=== PATIENT | female | born 1960 | race Caucasian/White ===

== ENCOUNTER 2019-03-05 15:27 | Inpatient (IN) | payer BC, OTHER ==
[~2019-03-05] VITALS: Ht 162.6 cm; Wt 82.9 kg
[2019-03-05] VITALS (8 sets, daily range): BP systolic 93–193; BP diastolic 48–550
--- NOTE | ~2019-03-05 | EMS ---
[address] [address] EMS Patient Care Report Name: TWILA GOODSON Room #: REG ALFREDO Espinoza#: [id number] Admission: 03/05/19 Attend Phys: Discharge: Date of : 60 Report #: [id number] THIS REPORT FOR: //name// Report Transmitted: 03/05/2019 15:42 EMS Care Summary [place], [place]/[facility] Incident [id number] @ 03/05/2019 14:57 Incident Location [address] [place] [address] Patient TWILA GOODSON Female, 58 Years 1960 Patient Address [address] [place] [address] Patient History None Reported, Patient Allergies No known allergies, Patient Medications Paula Foster, Chief Complaint Right arm/SHoulder pain Disposition Transported Lights/Noonan Dispatch Reason Chest Pain (Non-Traumatic) Transported To [facility] Narrative Arrived on scene for a 58 y/o female that is sitting on the toilet. Pt finished the restroom and walked herself to the couch in the front room. Pt said that she was napping and woke up with right arm pain. Pt said that she tried to take some ibuprofen with no relief. Pt said that the neighbor had a [address] [address] EMS Patient Care Report Name: TWILA GOODSON Room #: [facility]#: [id number] Admission: 03/05/19 Attend Phys: Discharge: Date of : 60 Report #: [id number] nitro and a baby aspirin and about 5 minutes after taking it, she vomited it up. Pt said that the pain is moving to her chest pain. See Pt Assessment STEMI See Flow Chart. Moved Pt from couch to cot. Transported emergent to closest STEMI Center. Activated Code STEMI. Moved Pt from cot to bed via cot sheet. Transferred care to receiving facility. Initial Vitals @15:18P: 73,CO: 4,SpO2: 92, @15:04P: 68,CO: 4,SpO2: 96,MD Suspected: true @15:02P: 70,R: 20,BP: 203/74,Pain: 4/10,GCS: 15,CO: 4,SpO2: 96,Revised Trauma: 12,MD Suspected: true Assessments @15:01MENTAL:Person Oriented,Time Oriented,Place Oriented,Event Oriented,SKIN:Cold,Diaphoresis,HEENT:Head/Face: No Abnormalities,Eyes: No Abnormalities,Neck/Airway: No Abnormalities,LUNG SOUNDS:General: No Abnormalities,Left Upper: No Abnormalities,Right Upper: No Abnormalities,Left Lower: No Abnormalities,Right Lower: No Abnormalities,ABDOMEN:General: No Abnormalities,Left Upper: No Abnormalities,Right Upper: No Abnormalities,Left Lower: No Abnormalities,Right Lower: No Abnormalities,PELVIS//GI:No Abnormalities,EXTREMITIES:Left Arm: Other,Right Arm: No Abnormalities,Left Leg: No Abnormalities,Right Leg: No Abnormalities,PULSE:Radial: 3+ Bounding,NEURO:No Abnormalities, Impression ST elevation myocardial infarction (STEMI) Procedures @15:01ALS AssessmentResponse: UnchangedSucceeded@15:10Saline Lock 5cc (18 ga) Site: Antecubital-LeftResponse: UnchangedSucceeded@15:043-Lead ECGResponse: Unchanged@15:12Aspirin - 324 Milligrams (mg) - OralResponse: Unchanged@15:20STEMI AlertResponse: Unchanged@15:0412-Lead ECGResponse: Unchanged Timeline 14:55,Call Received 14:55,Dispatch Notified 14:57,Dispatched 14:57,En Route 14:59,On Scene 15:01,At Patient [facility] [address] [place] [address] EMS Patient Care Report Name: TWILA GOODSON Lucien Room #: REG Alexis#: [id number] Admission: 03/05/19 Attend Phys: Discharge: Date of : 60 Report #: [id number] 15:01,ALS Assessment,Response: UnchangedSucceeded, 15:02,BP: 203/74 M,PULSE: 70,RR: 20 R,SPO2: 96 Ox,ETCO2: ,BG: ,PAIN: 4,GCS: 15, 15:04,3-Lead ECG,Response: Unchanged 15:04,12-Lead ECG,Response: Unchanged 15:04,BP: / M,PULSE: 68,RR: R,SPO2: 96 Ox,ETCO2: ,BG: ,PAIN: ,GCS: , 15:10,Saline Lock 5cc 18 ga Site: Antecubital-Left,Response: UnchangedSucceeded, 15:12,Aspirin - 324 Milligrams (mg) - Oral,Response: Unchanged 15:15,Depart Scene 15:18,BP: / M,PULSE: 73,RR: R,SPO2: 92 Ox,ETCO2: ,BG: ,PAIN: ,GCS: , 15:20,STEMI Alert,Response: Unchanged 15:23,At Destination 15:57,Call Closed Disclaimer v1.1 Copyright 2019 [employer] This EMS Care Summary contains data elements from the applicable legal record (which may be displayed differently). It is designed to provide pertinent information for the following purposes: continuity of care, clinical quality, and state data reporting. The complete legal record is available to ED staff and administrators of the receiving hospital in [employer]'s Patient Tracker. All data is provided "as is."
[~2019-03-05 15:27] MED LIST: IRON159 MG PO; PROVERA10 MG PO; STOOL SOFTENER50 MG PO
[2019-03-05 15:46] LABS: ABSOLUTE NEUTROPHILS 7.4 thou/uL (1.4-8.2); BASOPHILS 1.4 % (0.0-2.0); HEMOGLOBIN 15.5 gm/dL (12.0-15.0); LYMPHOCYTES 24.3 % (24.0-44.0); MCH 29.6 pg (26.0-34.0); MCHC 34.4 g/dL (28.0-37.0); MCV 86.1 fL (80.0-100.0); MONOCYTES 5.9 % (1.0-8.0); PLATELET COUNT 290 thou/uL (150-400); POLYS 66.4 % (36.0-66.0); RBC 5.22 mil/uL (4.20-5.00); RDW 12.8 % (10.5-14.5); WBC 11.2 thou/uL (4.0-11.0)
[2019-03-05 15:52] LABS: ANION GAP 11 mmol/L (7-16); BUN 21 mg/dL (7-18); CALCIUM 9.4 mg/dL (8.5-10.1); CHLORIDE 104 mmol/L (98-107); CO2 25 mmol/L (21-32); CREATININE 0.7 mg/dL (0.6-1.0); GLUCOSE 171 mg/dL (74-106); POTASSIUM 3.4 mmol/L (3.5-5.1); SODIUM 140 mmol/L (136-145)
[2019-03-05 15:56] LABS: APTT 24.3 Seconds (24.5-32.8); PROTIME 9.7 Seconds (9.3-11.4)
[2019-03-05 16:01] LABS: ALBUMIN 3.5 g/dL (3.4-5.0); SGOT 15 U/L (15-37); SGPT 22 U/L (30-65); TOTAL BILIRUBIN 0.3 mg/dL (<0.1-1.0); TOTAL PROTEIN 7.4 g/dL (6.4-8.2); TROPONIN-I <0.06 ng/mL (<0.06)
[2019-03-05] MEDS ORDERED: ALLEGRA ALLERG180 MG PO (18:09)
[2019-03-05] MEDS ORDERED: ALEVE220 MG PO (18:09)
--- NOTE | 2019-03-05 18:14 | CATHLAB ---
[facility] [employer] [place] [address] [place] [address] INVASIVE PROCEDURE REPORT Name: TWILA GOODSON Room #: 211-P [facility] IN [facility]#: [id number] Admission: 03/05/19 Attend Phys: Darion Powers, Discharge: Date of : 60 Date of Service: 03/05/19 1814 Report #: [id number] THIS REPORT FOR: //name// APPROVED REPORT Study performed: 03/05/2019 15:36:33 Patient Details Patient Status: ED Room #: The patient is a 58 year-old female Event Personnel Darion Powers Mental Health Counselor, Lauro Vines RN RN, Khang Love RTR ScrPresley petty Sherra RTR Monitor, Jessica Sheikh Monitor Procedures Performed Art Access - R femoral artery* Left Heart Cath w/or w/o Coronaries [id number] [facility] Place w/wo Plasty Single RCA [id number] Hemostasis w/ Mynx 75650 Initial Mod Sed Same Phys/QHP Gr5y 367301 65946 Mod Sed Same Phys/QHP Ea 125685 Procedure Narrative The patient was brought emergently to the Cardiac Catheterization Laboratory and was prepped and draped in a sterile manner. The Right Groin^ was infiltrated with 1% Lidocaine subcutaneous anesthesia. A PINNACLE 6FR Sheath #[id number] sheath was inserted into the RFA^. Coronary angiography was performed using coronary diagnostic catheters. The right coronary system was accessed and visualized with a jr4 catheter. The left coronary system was accessed and visualized with a jl4 catheter. The left ventricle was accessed and visualized with a angle pic catheter. Left ventriculogram was performed in 30 degree projection. The patient tolerated the procedure well and there were no complications associated with the procedure. There was no hematoma. Intraoperative Conscious Sedation Sedation start time: 1604 Case end Time: 1646 Fentanyl 100.0 mcg Versed 2.0 mg Fluoro Time: 4.40 minutes Dose: DAP 6972.50 cGycm2 885 mGy Contrast Type and Amount: Omnipaque [address] [address] INVASIVE PROCEDURE REPORT Name: KELLEETWILA A Room #: [address] [place] [address]#: [id number] Admission: 03/05/19 Attend Phys: Darion Powers, Discharge: Date of : 60 Date of Service: 03/05/19 1814 Report #: [id number] Coronary Angiography The patient's coronary anatomy is right dominant. Diagnostic Cath Left Main Large, normal left main LAD Long, variable 60% proximal to mid LAD stenosis Diagonal 1 Small first diagonal branch with 90% ostial stenosis Diagonal 2 Moderate size second diagonal branch, angiographically normal Circumflex Large, nondominant circumflex comprised of a single marginal branch 20-30% proximal circumflex plaquing OM1 Mild proximal OM1 branch plaquing Right Coronary Mild proximal and mid vessel plaquing. Critical subtotalled distal right coronary stenosis with thrombus and SELVIN 2 flow R PDA Large posterior descending with mild plaquing RPLV Large posterior lateral with mild proximal 10-20% plaquing Left Ventriculography The left ventricle is normal in size with normal contractility. The left ventricular ejection fraction is estimated to be 60-65%. Left ventricular wall motion abnormalities are not present. There is no mitral insufficiency. Hemodynamics The aortic pressure is 186/82 mmHg with a mean of 122 mmHg. The left ventricular pressure is 143/16 mmHg with a mean of mmHg. The left ventricular end diastolic pressure is 30 mmHg. There was no gradient across the aortic valve upon pullback. PCI Technique Lesion Anticoagulation was achieved with Heparin, Integrilin. Patient was preloaded with Effient. Percutaneous coronary intervention was performed on the mistal right coronary artery. A LAUNCHER 6FR JR 4 90CM #[id number] Guide Catheter was used to engage the RCA ostium. A Luge Wire .014 x 182CM #[id number] Interventional Guidewire was used to cross the lesion. BALLOON DILATION A Balloon catheter Euphora RX 3.0 x 15 #[id number] was inserted and inflated up to 14.00atm for 31seconds. STENT DEPLOYMENT [facility] [address] [place] [address] INVASIVE PROCEDURE REPORT Name: KENTON GOODSONDANIELLE Mcgraw Room #: 211-P [facility] IN ..#: [id number] Admission: 03/05/19 Attend Phys: Darion Powers, Discharge: Date of : 60 Date of Service: 03/05/19 1814 Report #: [id number] A stent RESOLUTE SELVIN RX 4.0 X 18 #[id number] was inserted and inflated up to 12.00atm for 30seconds. POST STENT DEPLOYMENT BALLOON DILATION A Balloon catheter Trek NC RX 4.0 x 12 #[id number] was inserted and inflated up to 16.00atm for 30seconds. Repeat angiography revealed the following post-stent deployment results: 0% residual stenosis with SELVIN-3 flow. Additional Inflation: 18.00atm for 30seconds. Final angiography reveals 0 % stenosis with SELVIN 3 flow. Conclusion 1. Normal global and regional left ventricular systolic function. Ejection fraction 60%. 2. Normal left main 3. Long tubular 60% stenosis involving the proximal to mid portions of the LAD 4. Mild circumflex plaquing 5. Dominant right coronary with critical distal 99% stenosis, treated with a 4.0 x 18 mm Resolute stent Recommendations Smoking Cessation Cardiac Rehabilitation Referral Aggressive Medical Therapy Medications Administered CLARIBEL Inhibitor (any) Aspirin (any) Beta Siobhan (any) Statin (any) Prasugrel Cardiac Rehabilitation Referral Smoking Cessation <ELECTRONICALLY SIGNED> By: Darion Powers MD, [facility] 03/05/191813 13 13 Darion Powers MD, FAC /INF
--- NOTE | 2019-03-05 18:38 | NUR ---
PT ADMITTED FROM SALES PERFORMANCE MANAGER AT 1700. PT GROIN CHECKED WITH SALES PERFORMANCE MANAGER RN, PULSATILE, SOFT, NO BLEEDING. PT INSTRUCTED ON BEDREST LIMITATIONS. TELE MONTIOR AND FREQUENT VITALS APPLIED. FAMILY AT BEDSIDE.
[2019-03-06 01:00] VITALS: BP 131/62
[2019-03-06 02:55] LABS: AMP/METHAMP Negative (Negative); BARBITURATES Negative (Negative); BENZODIAZEPINES POSITIVE (Negative); COCAINE Negative (Negative); METHADONE Negative (Negative); OPIATES POSITIVE (Negative); PCP Negative (Negative)
--- NOTE | 2019-03-06 05:09 | NUR ---
ASSUMED PT CARE AT 1900 WITH NO SIGN OF DISTRESS NOTED IN PT. PT IS ALERT AND ORIENTED WITH FAMILY AT BEDSIDE. PT IS LAYING FLAT AFTER CATH PROCEDURE. PT WAS ON BEDREST TILL 2099. RIGHT GROIN SITE INTACT. NO SIGN OF BLEEDING OR HEMATOMA. ASSESSMENT COMPLETED AN CHARTED. SCHEDULED MEDS ADMINISTERED TO PT. PT TOLERATED PO INTAKE. NO SIGN OF DISTRESS NOTED IN PT. CONTINUE TO MONITOR PT. DENIES ANY FURTHER NEEDS AT THIS TIME.
[2019-03-06 05:10] LABS: GLYCOHEMOGLOBIN (HGB A1C) 5.9 % (4.8-5.6)
[2019-03-06 05:11] VITALS: BP 153/76
[2019-03-06 05:56] LABS: HEMATOCRIT 36.9 % (37.0-47.0); MCH 29.7 pg (26.0-34.0); MCHC 33.7 g/dL (28.0-37.0); MCV 88.1 fL (80.0-100.0); RBC 4.19 mil/uL (4.20-5.00); RDW 12.8 % (10.5-14.5); WBC 15.1 thou/uL (4.0-11.0)
[2019-03-06 05:59] LABS: HEMOGLOBIN 12.4 gm/dL (12.0-15.0)
[2019-03-06 06:07] LABS: CHOLESTEROL 182 mg/dL (<200); HDL CHOLESTEROL 29 mg/dL (>40); LDL CHOLESTEROL 105 mg/dL (<100); TC:HDL 6.3 Ratio (Not establshd); TRIGLYCERIDE 240 mg/dL (<150); VLDL 48 mg/dL (<40)
[2019-03-06 06:09] LABS: SERUM ASSESSMENT Clear; TROPONIN-I 8.29 ng/mL (<0.06)
[2019-03-06 07:24] VITALS: BP 155/74
--- NOTE | 2019-03-06 12:26 | 2DMMODE ---
[facility] [place] [address] 2 D/M-MODE ECHOCARDIOGRAM Name: KELLEETWILA A Room #: 211-P [facility] IN .R.#: [id number] Admission: 03/05/19 Attend Phys: Darion Powers, Discharge: Date of : 60 Date of Service: 03/06/19 1226 Report #: [id number] THIS REPORT FOR: //name// APPROVED REPORT Study performed: 03/06/2019 10:47:59 EXAM: Comprehensive 2D, Doppler, and color-flow Echocardiogram Patient Location: Bedside Room #: 211 Status: routine BSA: 1.88 HR: 68 bpm BP: 155/74 mmHg Rhythm: NSR Other Information Study Quality: Adequate Indications STEMI 2D Dimensions RVDd: 30.34 mm IVSd: 9.62 (7-11mm) LVOT Diam: 20.91 (18-24mm) LVDd: 45.52 mm PWd: 11.43 (7-11mm) Ascending Ao: 30.19 (22-36mm) LVDs: 33.68 (25-40mm) Aortic Root: 27.96 mm IVC: 16.00 mm Volumes Left Atrial Volume (Systole) Single Plane 4CH: 22.41 mL Single Plane 2CH: 39.96 mL LA ESV Index: 18.00 mL/m2 Aortic Valve AoV Peak Mumtaz.: 1.97 m/s AO Peak Gr.: 15.45 mmHg LVOT Max P.44 mmHg LVOT Max V: 1.17 m/s NORY Vmax: 2.04 cm2 Mitral Valve E/A Ratio: 0.6 MV Decel. Time: 291.28 ms MV E Max Mumtaz.: 0.69 m/s [facility] [address] [place] [address] 2 D/M-MODE ECHOCARDIOGRAM Name: TWILA GOODSON Room #: [address] [place] [address]#: [id number] Admission: 03/05/19 Attend Phys: Darion Powers, Discharge: Date of : 60 Date of Service: 03/06/19 1226 Report #: [id number] A Mumtaz.: 1.14 m/s MV PHT: 84.47 ms IVRT: 145.33 ms Pulmonary Valve PV Peak Mumtaz.: 1.28 m/s PV Peak Gr.: 6.58 mmHg Pulmonary Vein P Vein S: 0.58 m/s P Vein A: 0.30 m/s P Vein D: 0.32 m/s P Vein A Dur.: 148.8 msec P Vein S/D Ratio: 1.81 Tricuspid Valve RAP Estimate: 5.00 mmHg Left Ventricle The left ventricle is normal size. There is normal left ventricular wall thickness. The left ventricular systolic function is normal. Minimal hypokinesis base of inferior wall LVEF is 55-60%. Mild diastolic dysfunction Right Ventricle The right ventricle is normal size. The right ventricular systolic function is normal. Atria The left atrium size is normal. The right atrium size is normal. Aortic Valve The aortic valve is normal in structure. No aortic regurgitation is present. There is no aortic valvular stenosis. Mitral Valve Mild mitral annular calcification No mitral regurgitation. No evidence of mitral valve stenosis. Tricuspid Valve The tricuspid valve is normal in structure. There is no tricuspid valve regurgitation noted. Unable to assess PA pressure. Pulmonic Valve The pulmonary valve is normal in structure. There is no pulmonic valvular regurgitation. Great Vessels [facility] [address] [place] [address] 2 D/M-MODE ECHOCARDIOGRAM Name: TWILA GOODSON Room #: 211-P [facility] IN .R.#: [id number] Admission: 03/05/19 Attend Phys: Darion Powers, Discharge: Date of : 60 Date of Service: 03/06/19 1226 Report #: [id number] The aortic root is normal in size. IVC is normal in size and collapses >50% with inspiration. Pericardium There is no pericardial effusion. <Conclusion> The left ventricular systolic function is normal. Minimal hypokinesis base of inferior wall LVEF is 55-60%. Mild diastolic dysfunction The aortic valve is normal in structure. No aortic regurgitation or stenosis. Mild mitral annular calcification. No mitral regurgitation. Unable to assess pulmonary artery pressure. There is no pericardial effusion. <ELECTRONICALLY SIGNED> By: Darion Powers MD, FACC 03/06/19 1226 122 122 Darion Powers MD, FACC /INF
--- NOTE | 2019-03-06 12:58 | NUR ---
Chart reviewed and case discussed with the care team. Cm referral rec'd d/t pt pay status. Floor Specialist visited with the pt at bedside. She is a&ox4 and indicates that she has insurance through [employer]. Her spouse will bring in the card for us to copy this afternoon. 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 No cm interventions indicated at this time for dc planning.
[2019-03-06] MEDS ORDERED: LISINOPRIL20 MG PO (13:33)
[2019-03-06] MEDS ORDERED: METOPROLOL SUCC25 M1 PO ×2 (13:33→17:06)
[2019-03-06] MEDS ORDERED: LIPITOR40 MG PO (13:33)
[2019-03-06] MEDS ORDERED: EFFIENT10 MG PO (13:33)
[2019-03-06] MEDS ORDERED: ASPIRIN325 PO (13:33)
[2019-03-06 15:49] VITALS: BP 137/70
--- NOTE | 2019-03-06 16:11 | NUR ---
PT ALERT AND ORIENTED TIMES FOUR. VSS, SR ON TELE. PT DENIES PAIN/SOA. PT TOLERATES MEDS AND MEALS. PT UP TO RESTROOM WITH STEADY GAIT. PT FAMILY AT BEDSIDE. PT PROGRESSING TOWRADS POC GOALS.
[2019-03-06 20:05] VITALS: BP 158/76
--- NOTE | 2019-03-07 05:02 | NUR ---
ASSUMED PT CARE AT 1900 WITH NO SIGN OF DISTRESS NOTED. PT IS ALERT AND ORIENTED. FAMILY AT BEDSIDE. PT IS STABLE AND RESTING IN BED. ASSESSMENT COMPLETED AND CHARTED. SCHEDULED MEDS ADMINISTERED TO PT. PT TOLERATED PO INTAKE. PT IS STABLE. DENIES ANY FURTHER NEEDS AT THIS TIME.
[2019-03-07 05:45] LABS: CALCIUM 8.6 mg/dL (8.5-10.1); CREATININE 0.6 mg/dL (0.6-1.0); POTASSIUM 3.8 mmol/L (3.5-5.1)
[2019-03-07 08:00] VITALS: BP 134/69
[2019-03-07 09:53] VITALS: BP 134/69
--- NOTE | 2019-03-07 10:19 | NUR ---
ASSESSMENT CHARTED. PT ALERT AND ORIENTED. VSS. DENIED HAVING PAIN OR DISCOMFORT. SEEN BY DR. CANTU. ORDERS GIVEN TO DISCHARGE PT TO HOME. DISCHARGE GIVEN TO PT. PT VERBERLIZE UNDERSTANDING.
--- NOTE | 2019-03-07 12:45 | D ---
[facility] [place] [address] DISCHARGE SUMMARY Name: TWILA GOODSON Room #: 211-P [facility] IN M.R.#: [id number] Admission: 03/05/19 Attend Phys: Darion Powers MD, Discharge: 03/07/19 Date of : 60 Report #: [id number] THIS REPORT FOR: //name// CC: Darion Powers [facility] DISCHARGE DIAGNOSES: 1. Acute inferolateral myocardial infarction interrupted by stenting of the distal right coronary (4.0 x 18 mm Resolute medicated stent). 2. Dyslipidemia. 3. Mild ischemic cardiomyopathy. 4. Hypertension. 5. Tobacco dependency. 6. Prediabetes (hemoglobin A1c 5.9). HISTORY OF PRESENT ILLNESS: For the complete details of the history of present illness, see dictated history and physical. Briefly, the patient is a 58-year-old woman with a longstanding smoking history. She presented with right arm and upper chest discomfort. EKG demonstrated inferolateral injury pattern. She was admitted for further and urgent evaluation. HOSPITAL COURSE: The patient was taken urgently to coronary angiography. The full details of this can be found under separate heading and dictation. In summary, critical disease was found in a distal right coronary, which was successfully stented with a 4.0 x 18 mm Resolute medicated stent. Left ventricular systolic function was grossly normal with minimal inferior wall hypokinesis. There was a long tubular 60% stenosis involving the proximal to mid portions of the LAD, which will be followed closely. The circumflex exhibited mild plaquing. Her procedural course was largely uneventful. She was treated with aspirin, prasugrel, heparin and Integrilin in the rogers-procedural setting. She tolerated the initiation of CLARIBEL inhibitor and beta blockade as well as statin therapy. Smoking cessation counseling was performed. Chantix was offered, but declined. On presentation, her cholesterol was 182 with an HDL of 29 and an LDL of 105, peak troponin was 8.29 and a hemoglobin A1c was 5.9%. She was ambulating and pain free with excellent groin hemostasis at the time of discharge. DISCHARGE MEDICATIONS: Include aspirin 325 mg daily, atorvastatin 40 mg daily, lisinopril 20 mg daily, Toprol-XL 50 mg daily, prasugrel 10 mg daily. Medicines were reconciled. DISCHARGE DIET: Low fat, low cholesterol, carb-controlled diet. DISCHARGE ACTIVITY: As instructed, post-catheterization and stenting. Follow up arrangements were made for outpatient cardiac rehabilitation. [address] [address] DISCHARGE SUMMARY Name: TWILA GOODSON Room #: 211-P [facility] IN ..#: [id number] Admission: 03/05/19 Attend Phys: Darion Powers MD, Discharge: 03/07/19 Date of : 60 Report #: [id number] DISCHARGE FOLLOWUP: With myself in 1 month. DISCHARGE CONDITION: Stable and improved. <ELECTRONICALLY SIGNED> By: Darion Powers MD, [facility] 03/07/19 1245 1714 1756 Darion Powers MD, [facility] /nt
--- NOTE | 2019-03-07 12:46 | H ---
[facility] [place] [address] HISTORY AND PHYSICAL Name: TWILA GOODSON Room #: 211-P [facility] IN .R.#: [id number] Admission: 03/05/19 Attend Phys: Darion Powers MD, Discharge: 03/07/19 Date of : 60 Report #: [id number] THIS REPORT FOR: //name// CC: Darion Loraa [facility] DATE OF SERVICE: 03/05/2019 REASON FOR CONSULTATION: Chest pain. HISTORY OF PRESENT ILLNESS: The patient is a 58-year-old smoker with a fairly limited past medical history. She was taking a nap this afternoon and awakened with right arm pain with chest discomfort. She presented to the Emergency Department at 1531 hours where an EKG demonstrated inferolateral injury pattern. I was asked to see her in this regard. She denies a past cardiac history. No heart failure symptoms including orthopnea, paroxysmal nocturnal dyspnea, or lower extremity edema. No history of palpitations, near syncope or syncope. ALLERGIES: There are no known drug allergies. MEDICATIONS: She takes Aleve as needed. PAST MEDICAL HISTORY: Medical records have been reviewed. There are no significant illnesses, hospitalizations or surgeries. SOCIAL HISTORY: She is an ongoing smoker. FAMILY HISTORY: Notable for a father who had bypass in his 50s. REVIEW OF SYSTEMS: All systems negative except as that noted above. PHYSICAL EXAMINATION: GENERAL: Reveals a pleasant, anxious woman in mild distress. VITAL SIGNS: Blood pressure is 190/90, heart rate of 74 and regular. She is afebrile. HEENT: There are neither xanthelasma, subcutaneous xanthomata, oral mucosal or digital cyanosis or kyphoscoliosis present. CHEST: Clear to auscultation and percussion. CARDIAC: Regular rate and rhythm with normal S1, S2. ABDOMEN: Soft and nontender. EXTREMITIES: Without cyanosis, clubbing or edema. Radial pulses are 2+. NEUROLOGIC: She is alert with a nonfocal exam. LABORATORY DATA: Sodium 140, potassium 3.4, creatinine 0.7, glucose 171. White count 11.2, hemoglobin 15, hematocrit 45, platelet count 290. EKG as detailed above. [facility] [address] [place] [address] HISTORY AND PHYSICAL Name: TWILA GOODSON Room #: 211-P [facility]#: [id number] Admission: 03/05/19 Attend Phys: Darion Powers MD, Discharge: 03/07/19 Date of : 60 Report #: [id number] IMPRESSION: 1. Acute inferolateral myocardial infarction. 2. Dyslipidemia. 3. Elevated blood sugar. 4. Tobacco dependency. RECOMMENDATIONS: 1. Therapy with aspirin, anticoagulants, beta blockade as hemodynamics allow. 2. Urgent coronary angiography. I have discussed the angiographic procedure in detail including its associated risks. After a thorough discussion of the procedure, its risks and alternatives and after answering her questions, she is agreeable to proceeding. <ELECTRONICALLY SIGNED> By: Darion Powers MD, [facility] 03/07/19 1246 1555 1624 Darion Powers MD, [facility] /nt
--- NOTE | 2019-03-07 13:49 | EKG ---
[address] [place] [address] ELECTROCARDIOGRAM REPORT Name: TWILA GOODSON Room #: 211-P [facility] IN .R.#: [id number] Admission: 03/05/19 Attend Phys: Darion Powers MD, Discharge: 03/07/19 Date of : 60 Report #: [id number] THIS REPORT FOR: //name// [facility] ED Test Date: 2019-03-05 Test Time: 15:31:16 Pat Name: TWILA GOODSON Department: Room: [facility] Gender: F Sign Carpenter: BS : 1960 Requested By: All Cruz Order Number: [id number] MD: Darion Powers Measurements Intervals [place] Rate: 71 P: 35 MT: 190 QRS: 5 QRSD: 86 T: 95 QT: 401 QTc: 436 Interpretive Statements Sinus rhythm Inferior infarct, acute (RCA) Lateral leads are also involved Compared to ECG 02/21/2012 07:22:13 Myocardial infarct finding now present Electronically Signed On 03-07-2019 13:49:41 CDT by Darion Powers [email or web address] <ELECTRONICALLY SIGNED> By: Darion Powers MD, [facility] 03/07/19 1349 1531 1531 Darion Powers MD, [facility] /EPI
--- NOTE | 2019-03-07 13:52 | EKG ---
[place] [address] [facility] [place] [address] ELECTROCARDIOGRAM REPORT Name: TWILA GOODSON Room #: [facility] IN M.R.#: [id number] Admission: 03/05/19 Attend Phys: Darion Powers MD, Discharge: 03/07/19 Date of : 60 Report #: [id number] THIS REPORT FOR: //name// [facility] Test Date: 2019-03-05 Test Time: 17:55:45 Pat Name: TWILA GOODSON Department: Room: [facility] Gender: F Rework Machine Operator: Vincent FLOWERS : 1960 Requested By: Darion Powers Order Number: [id number] MD: Darion Powers Measurements Intervals [place] Rate: 61 P: -18 MN: 133 QRS: -9 QRSD: 79 T: 61 QT: 467 QTc: 471 Interpretive Statements Sinus rhythm Ventricular premature complex LVH by voltage Inferior infarct, acute (RCA) Lateral leads are also involved Compared to ECG 02/21/2012 07:22:13 Ventricular premature complex(es) now present Electronically Signed On 03-07-2019 13:51:51 CDT by Darion Powers [email or web address] <ELECTRONICALLY SIGNED> By: Darion Powers MD, FAC 03/07/19 1351 1755 1755 Darion Powers MD, FAC /EPI
--- NOTE | 2019-03-07 13:57 | EKG ---
[place] [address] [facility] [place] [address] ELECTROCARDIOGRAM REPORT Name: KELLEETWILA Lucien Room #: [facility] IN M.R.#: [id number] Admission: 03/05/19 Attend Phys: Darion Powers MD, Discharge: 03/07/19 Date of : 60 Report #: [id number] THIS REPORT FOR: //name// [facility] Test Date: 2019-03-06 Test Time: 07:18:44 Pat Name: TWILA GOODSON Department: Room: [facility] Gender: F Patcher: BRANDEE : 1960 Requested By: Darion Powers Order Number: [id number] MD: Darion Powers Measurements Intervals [place] Rate: 65 P: 22 HI: 184 QRS: -19 QRSD: 94 T: 10 QT: 415 QTc: 432 Interpretive Statements Sinus rhythm Inferior infarct, old Compared to ECG 02/21/2012 07:22:13 Premature ventricular complexes no longer present Electronically Signed On 03-07-2019 13:57:33 CDT by Darion Powers [email or web address] <ELECTRONICALLY SIGNED> By: Darion Powers MD, [facility] 03/07/19 1357 7 Darion Powers MD, [facility] /EPI
== END 2019-03-07 10:57 | disposition home or self-care (01) | DRG 247 ==
LOC: ER 15:27 → EROBS 17:08 → 2N 17:08 → ENTRNSPT 03-07 10:21 → EDTRNSPTSTS 03-07 10:22 → 2N 03-07 10:57
PROVIDERS: Emergency Medicine; ADMIT Internal Medicine
PROC: 4A023N7 Measurement of Cardiac Sampling and Pressure, Left Heart, Percutaneous Approach (ICD-10-PCS; principal; 2001-03-05)
PROC: 027034Z Dilation of Coronary Artery, One Artery with Drug-eluting Intraluminal Device, Percutaneous Approach (ICD-10-PCS; principal; 2001-03-05)
PROC: B2111ZZ Fluoroscopy of Multiple Coronary Arteries using Low Osmolar Contrast (ICD-10-PCS; principal; 2001-03-05)
PROC: B2151ZZ Fluoroscopy of Left Heart using Low Osmolar Contrast (ICD-10-PCS; principal; 2001-03-05)
DX: I21.19 ST elevation (STEMI) myocardial infarction involving other coronary artery of inferior wall (principal); I10 Essential (primary) hypertension; E78.5 Hyperlipidemia, unspecified; I25.5 Ischemic cardiomyopathy; R73.03 Prediabetes; Z82.49 Family history of ischemic heart disease and other diseases of the circulatory system; Z79.899 Other long term (current) drug therapy
CPT/HCPCS: 10081

== ENCOUNTER → 2019-08-29 | Outpatient (CLI) | payer BC, OTHER ==
[~2019-08-29] MED LIST changes: +ALEVE220 MG PO; +ALLEGRA ALLERG180 MG PO; +ASPIRIN325 PO; +EFFIENT10 MG PO; +LIPITOR40 MG PO; +LISINOPRIL20 MG PO; +METOPROLOL SUCC25 M1 PO
== END ==
LOC: SJCVCIMAG 08:25
DX: I65.23 Occlusion and stenosis of bilateral carotid arteries (principal); R19.8 Other specified symptoms and signs involving the digestive system and abdomen; I25.10 Atherosclerotic heart disease of native coronary artery without angina pectoris; F17.200 Nicotine dependence, unspecified, uncomplicated

== ENCOUNTER → 2020-09-02 | Outpatient (CLI) | payer OTHER | LOC: SJCVCIMAG 08:55 | PROVIDERS: ATTEND Internal Medicine | DX: I25.10 Atherosclerotic heart disease of native coronary artery without angina pectoris (principal); R00.0 Tachycardia, unspecified; I42.9 Cardiomyopathy, unspecified; I10 Essential (primary) hypertension; E78.5 Hyperlipidemia, unspecified; Z79.82 Long term (current) use of aspirin; Z79.899 Other long term (current) drug therapy; Z86.73 Personal history of transient ischemic attack (TIA), and cerebral infarction without residual deficits; Z87.891 Personal history of nicotine dependence ==